=== PATIENT | female | born 1995 | race Caucasian/White ===

== ENCOUNTER → 2021-06-06 | Outpatient (CLI) | payer OTHER ==
--- NOTE | 2021-06-07 08:50 | KCIC ---
EXAM: MRI RIGHT HIP WITHOUT CONTRAST DATE: 06/06/2021 3:05 PM CLINICAL INDICATION: Reason: RIGHT HIP PAIN / Spl. Instructions: / History: Rt hip pain x 2 mths, NK I. COMPARISON: None. TECHNIQUE: Multiplanar, multisequence MR imaging of the right hip was performed without IV contrast. FINDINGS: Examination is limited by motion artifact despite repeating sequences. No hip joint effusion. No trochanteric bursitis. Articular cartilage is grossly preserved. No fracture or osteonecrosis. Borderline coxa valga. Labrum is grossly intact within the constraints of this nonarthrographic study. Gluteus: Tendinous attachment of the gluteus musculature including medius within normal limits. Hamstrings:Tendinous attachment of the hamstrings intact. Iliopsoas: Tendinous attachment of the iliopsoas intact. Yarelis-articular soft tissues: Negative periarticular mass lesion or focal muscular atrophy. Limited survey of pelvis: Trace free pelvic fluid likely physiologic. Small follicles right ovary. IMPRESSION: 1. Borderline coxa valga. 2. Articular cartilage and labrum is grossly intact. 3. No fracture or osteonecrosis. Electronically signed by: Reno Murphy MD (06/07/2021 8:47 AM) [id number]
== END ==
LOC: KCIC MRI 14:36
PROVIDERS: ATTEND Family Medicine
DX: M21.851 Other specified acquired deformities of right thigh (principal)
CPT/HCPCS: 73721